=== PATIENT | female | born 1965 | race African-American/Black ===

== ENCOUNTER 2022-04-27 22:28 | Emergency (ER) | payer BC ==
[~2022-04-27] VITALS: Ht 157.5 cm; Wt 80.0 kg
[2022-04-27 22:34] VITALS: BP 173/81
[2022-04-28] MEDS ORDERED: IBUPROFEN 600MG TABLET PO STA (01:02)
[2022-04-28] MEDS ORDERED: IBUPROFEN 600MG TABLET PO SCH (03:30)
[2022-04-28] MEDS ORDERED: CYCL5TAB PO (05:28)
[2022-04-28] MEDS ORDERED: IBUP-2029 PO (05:28)
== END 2022-04-28 07:08 | disposition home or self-care (01) ==
LOC: ER 22:28
DX: M54.2 Cervicalgia (principal); R51.9 Headache, unspecified; M54.9 Dorsalgia, unspecified; G89.11 Acute pain due to trauma; R03.0 Elevated blood-pressure reading, without diagnosis of hypertension; V49.59XA Passenger injured in collision with other motor vehicles in traffic accident, initial encounter; Y93.89 Activity, other specified; Y92.488 Other paved roadways as the place of occurrence of the external cause; M47.892 Other spondylosis, cervical region; M47.896 Other spondylosis, lumbar region; C50.919 Malignant neoplasm of unspecified site of unspecified female breast; C79.9 Secondary malignant neoplasm of unspecified site
CPT/HCPCS: 72100; 99284